=== PATIENT | male | born 1990 | race Caucasian/White ===

== ENCOUNTER 2020-01-05 09:35 | Emergency (ER) | payer OTHER ==
[~2020-01-05] VITALS: Ht 180.3 cm; Wt 79.5 kg
[2020-01-05 11:27] VITALS: BP 120/72
== END 2020-01-05 11:30 | disposition home or self-care (01) ==
LOC: EMS 09:42
DX: Z03.818 Encounter for observation for suspected exposure to other biological agents ruled out (principal)
CPT/HCPCS: 87635; 99283; U0003